=== PATIENT | female | born 2005 | race Caucasian/White ===

== ENCOUNTER 2024-01-09 21:26 | Emergency (ER) | payer OTHER, SELFPAY ==
[2024-01-09] MEDS ORDERED: Ondansetron ODT 4 MG TAB ONE (22:48)
[2024-01-09] MEDS ORDERED: Amoxicillin/Potassium Clav 875 MG TAB ONE (22:48)
== END 2024-01-09 23:00 | disposition home or self-care (01) ==
LOC: ERS 21:26
DX: U07.1 COVID-19 (principal); J18.9 Pneumonia, unspecified organism
CPT/HCPCS: 71045; 93005; Q0162

== ENCOUNTER 2024-01-22 09:15 | Emergency (ER) | payer OTHER ==
[2024-01-22] MEDS ORDERED: Ondansetron PF 4 MG/2 ML Vial ONE (10:08)
[2024-01-22 10:19] LABS: BHCG - Serum Negative (NEGATIVE); Pregs Control Background? CLEAR/WHITE (CLR/WHITE); Pregs Control Bar Appear? YES (CONTROL BAR)
[2024-01-22 10:32] LABS: ALT (SGPT) 16 U/L (8-55); AST (SGOT) 25 U/L (5-30); Acetaminophen Less than 10 mcg/mL (Less than 10); Alcohol Less than 10.0 mg/dL (Less than 10); Alkaline Phosphatase 47 U/L (40-100); Anion Gap 25 mmol/L (10-20); BUN (Urea Nitrogen) 17 mg/dL (8.4-21.0); Bilirubin, Total 0.8 mg/dL (0.2-1.2); Calc. Creatinine Clearance 0 mL/min (70-130); Calcium 10.8 mg/dL (7.8-10.44); Carbon Dioxide 18 mmol/L (22-29); Chloride 105 mmol/L (98-107); Estimated GFR 93; Globulin 3.5 g/dL (2.4-3.5); Glucose 73 mg/dL (70-105); Potassium 3.8 mmol/L (3.5-5.1); Protein, Total 8.5 g/dL (6.0-8.3); Salicylate Less than 8.0 mg/dL (Less than 8.0); Sodium 144 mmol/L (136-145)
[2024-01-22 10:40] LABS: #Basophils 0.05 10x3/uL (0.0-0.2); #Eosinophils Less than 0.03 10x3/uL (0.0-0.7); %Basophils 0.2 % (0.0-1.0); %Eosinophils 0.1 % (0.0-10.0); %Lymphocytes 5.9 % (28.0-48.0); %Monocytes 3.9 % (0.0-4.0); %Neutrophils 89.6 % (31.0-61.0); Hematocrit 38.7 % (36.0-47.0); Hemoglobin 13.5 g/dL (12.0-16.0); Mean Corpuscular HGB CONC 34.6 g/dL (32.0-36.0); Mean Corpuscular Hemoglobin 32.4 pg (25.0-35.0); Mean Corpuscular Volume 93.7 fL (78.0-98.0); Mean Platelet Volume 10.8 fL (7.4-10.4); Platelet Count 182 10x3/uL (130-400); RBC Distribution Width 10.9 % (11.5-14.5)
== END 2024-01-22 12:43 | disposition home or self-care (01) ==
LOC: ERS 09:15
DX: E86.0 Dehydration (principal); R55 Syncope and collapse; Z55.6 Problems related to health literacy; Z75.3 Unavailability and inaccessibility of health-care facilities
CPT/HCPCS: 71045; 80053; 80307; 84443; 84703; 85025; 93005; 96374; J2405